=== PATIENT | male | born 1990 | race Caucasian/White ===

== ENCOUNTER 2017-07-07 13:42 | Day surgery (SDC) | payer MEDICAID ==
[~2017-07-07] VITALS: Ht 165.1 cm; Wt 81.6 kg
[~2017-07-07 13:42] MED LIST: AUGMENTIN 875-1 EACH PO; IBUPROFEN800 MG PO; KEFLEX 500MG.500 MG PO; LIDOCAINE 2% V100 M2 PO; MEDROL 4MG. DOSE4 MG PO; MOTRIN400 MG PO; NAPROXEN SODIU500 MG PO; NOMEDS; NORCO 325 MG-51 TAB PO; NYSTATIN O15 GM/TUBE TP; TYLENOL WITH CO1 TA1 PO; VOLTAREN75 MG PO
--- NOTE | 2017-07-07 16:42 | Anesthesia Record ---
Anesthesia Record Part I Total IV fluids: 750 EBL (ml): 10 Urine Output: 0 B/P: 137/66 % SaO2: 98 Pulse: 57 Resps: 16 Temp: 97.4 Patient is: Drowsy, Stable Stable to PACU at: 1639 at 1647
--- NOTE | 2017-07-07 16:42 | Anesthesia Record ---
Anesthesia Record Part II Discharge time: 1709 Destination: Same day surgery PACU nurse assessment review? Yes Patient is: Stable Anesthesia complications? No at [id number]
--- NOTE | 2017-07-07 16:42 | Operative Note ---
Surgeon/Diagnoses Surgeon/District Associate Judge(s) Date of procedure: 07/07/17 Surgeon: Todd Pedersen Diagnoses Pre-op diagnosis: Thrombosed hemorrhoid Post-op diagnosis Same Procedure Procedure Procedure: Simple hemorrhoidectomy for acute thrombosed hemorrhoid Indications: NEREIDA MUNGUIA is a 27 year-old Male who had presented to the urgent treatment Center yesterday evening with a 24-hour history of anal pain and swelling. He was found to have a large acutely thrombosed hemorrhoid. He was asked to follow up with surgery the following morning. Patient was seen in the office and had a severely symptomatic extremely tender lateral LEFT acutely thrombosed hemorrhoid. Options were discussed and plan was made for operative intervention with hemorrhoidectomy with evacuation of the clot as a simple hemorrhoidectomy. Findings: Consistent with acutely thrombosed hemorrhoid. Procedure Description: Consent was obtained and patient was taken to the operating room. He was positioned in a supine position. Gen. anesthesia was induced via LMA. He was positioned in traditional lithotomy position. The area was prepped and draped in the standard surgical fashion. He had a firm thrombosed hemorrhoid in the LEFT lateral location. Anoscope was inserted. He did have minimal hemorrhoid tissue on the RIGHT. Endoscope was inserted. Elliptical incision was made overlying the thrombosed hemorrhoid. There was an immediate evacuation of a large amount of blood clot. The overlying anoderm with thrombosed hemorrhoid was excised mostly en bloc with Metzenbaum dissection with some piecemeal removal of hemorrhoid tissue. The anoderm was then reapproximated with a running locking 3-0 chromic. There was good hemostasis. Local anesthetic was infiltrated. Gelfoam roll was soaked in local anesthetic and inserted into the anal canal for hemostasis and topical hemostatic agent. Clean dry sterile dressing. EBL (ml): 20 Anesthesia: General via LMA Specimens: Hemorrhoid tissue Disposition Disposition: To PACU at 1646
[2017-07-07 19:59] VITALS: BP 123/64
== END 2017-07-07 18:05 | disposition home or self-care (01) ==
LOC: SDC 13:42
PROVIDERS: Surgery
PROC: 06BY0ZC Excision of Hemorrhoidal Plexus, Open Approach (ICD-10-PCS; principal; 2017-07-07 13:30)
DX: K64.5 Perianal venous thrombosis (principal)